=== PATIENT | female | born 1985 | race Caucasian/White ===

== ENCOUNTER 2020-06-24 11:00 | Outpatient (CLI) | payer OTHER | END 2020-06-24 11:01 | disposition home or self-care (01) | LOC: COV 11:00 | PROVIDERS: ATTEND Family Medicine | DX: R05 Cough (principal); Z20.828 Contact with and (suspected) exposure to other viral communicable diseases; R53.83 Other fatigue; R09.81 Nasal congestion; J02.9 Acute pharyngitis, unspecified; R68.83 Chills (without fever) ==